=== PATIENT | male | born 1980 | race Caucasian/White ===

== ENCOUNTER 2022-10-02 07:54 | Outpatient (OUT) | payer OTHER, SELFPAY | END 2022-10-02 07:55 | disposition home or self-care (01) | PROVIDERS: Visit Provider Urology | DX: Z01.818 Encounter for other preprocedural examination (principal); N20.1 Calculus of ureter ==

== ENCOUNTER 2022-10-11 11:02 | Day surgery (SDC) | payer OTHER, SELFPAY ==
[2022-10-02 08:27] VITALS: BP 113/80; PULSE 59; RESP 14; TEMP 36.6; O2SAT 99; BMI 28.9
[2022-10-11] VITALS (11 sets, daily range): BP systolic 103–124; BP diastolic 66–87; PULSE 54–98; RESP 11–20; TEMP 36.1; O2SAT 96–98; BMI 28.2
--- NOTE | 2022-10-11 11:15 | XR_ITS ---
The [address] [address] Patient Name: LYSSA WALTER MRN: [id number] date: 1980 Sex: M Assigned Patient Location: [facility] Current Patient Location: [facility] Accession/Order Number: [id number] Exam Date: 10/11/2022 11:10 Report Date: 10/11/2022 12:00 At the request of: HAYDEN JIMÉNEZ Procedure: XR abdomen 1V EXAMINATION: XR abdomen 1V HISTORY: kidney stones COMPARISON: No relevant comparison available. FINDINGS: KIDNEY/URETER - RIGHT: No visible renal or ureteral calcifications. KIDNEY/URETER - LEFT: Left double-J ureteral stent in normal position. 5 mm calcification medial to the stent along the lower margin of genet left L3 transverse process PELVIS: No visible ureteral calcifications. Any visible calcifications favor phleboliths. BOWEL: No abnormal dilation or deviation. BONES: No acute abnormality. OTHER: Negative. No abnormal gaseous collections. XR/XR abdomen 1V IMPRESSION: Left ureteral stent with suspected mid ureterolith Electronically authenticated by: MARILIA GOMEZ Date: 10/11/2022 12:00
[2022-10-11] MEDS: LACTATED RINGER'S SOLUTION 1,000 ML 50 ML IV ×2 (11:40→14:53)
[2022-10-11] MEDS: CIPROFLOXACIN IN 5 % DEXTROSE 400 MG/200 ML PIGGYBACK IV (12:51)
[2022-10-11] MEDS: IOHEXOL 240 MG/ML - 50 ML VIAL INJ (14:16)
--- NOTE | 2022-10-11 14:29 | P.URON_ITS ---
Urology Surgery Operative Note Operative Note Procedure Date: 10/11/22 Time Out Performed: yes Pre-op Diagnosis: 1. Left distal ureteral stones 2. Left kidney stone Post-op Diagnosis: Same Procedures performed: Cystoscopy, left retrograde pyelogram, ureteroscopy laser lithotripsy/stone basket extraction of ureteral and kidney stones, stent exchange Anesthesia: GETA (LMA, Dr. Del Valle) Primary Surgeon: Mariana Herzog Complications: none Estimated blood loss (mL): 0 Findings: Mild bilobar prostatic hypertrophy with elevated bladder neck. Impacted 12 mm left distal/UVJ stones successfully lithotripsied and removed. Area was dilated but did not appear significant/ballooned out. Inflammed mucosa underlying. 7x3 mm irregular shaped left lower pole stone laser lithotripsied and removed. Mild hydronephrosis. Specimens: left ureteral and kidney stones Drains: 6Fr x 22-30 cm JJ left ureteral stent Incision: none Indications for Procedures: 41 year old male recently diagnosed with 12mm of left distal ureteral stone burden and a 7 mm kidney stone s/p ureteral stent placement by Dr. Albrecht on 08/19/22 was evaluated in clinic and elected to proceed with definitive stone surgery of left ureteroscopy, laser lithotripsy/stone extraction, stent exchange. He desires treatment of his kidney stone as well. Risks were discussed including but not limited to bleeding, pain, infection, damage to surrounding structures, inability to treat the stone, and need for additional procedures. The patient understands the stent is not permanent and needs to be removed or exchanged within 3 months to prevent encrustation, infection, invasive procedures and/or permanent renal damage. Detailed description of Procedure: After informed consent was obtained, the patient was brought to the operating room and transferred onto the operating table in supine position. Sequential compression devices were placed on bilateral lower extremities. The patient received the appropriate dose of preoperative IV antibiotics (2g Ancef) and general anesthesia LMA was induced. They were positioned in modified d orsolithotomy with the appropriate pressure points padded, prepped, and draped in the usual sterile fashion for this procedure. An operative safety timeout was performed confirming the patient's identity, laterality and procedure, and all present agreed to proceed. I began by inserting a 22 [place] rigid cystoscope with 30 degree lens into the patient's urethra and bladder without difficulty. There were no bladder tumors, lesions or stones. Bilateral ureteral orifices were orthotopic and patent. I turned my attention to the left ureteral orifice and a flexible grasper was used to bring the indwelling stent to the meatus. A sensor wire was inserted into the stent up to the renal pelvis confirmed on fluoroscopy, and the stent was removed in its entirety without difficulty. Next a semirigid ureteroscope was inserted along the wire to get access to the distal ureteral stone. A 275 ?m holmium laser fiber was used to break the stone into fragments which were then removed with a 2.4 tipless basket. Once the ureter was cleared, the ureteroscope was removed. A 11/13 [place] by 36 cm ureteral access sheath was inserted over the wire in a sequential fashion to gain access to the renal pelvis. Next a flexible ureteroscope was inserted into the sheath and advanced to the renal pelvis. A full renoscopy was performed noting a 7x3mm left lower pole kidney stone. This was lasered and removed with the basket. Any remaining fragments were dusted into 1mm fragments. After the stone was adequately treated, a full renoscopy was performed confirming no significant residual stones or fragments remained. Contrast was injected to assist with mapping for the renoscopy. The wire was reinserted and a pull down ureteroscopy was performed confirming no stones remained in the ureter. The wire was backloaded through the cystoscope and 6Fr x 22-30cm JJ variable length ureteral stent was advanced over the wire, noting adequate curl in the renal pelvis and bladder on fluoroscopic and direct visualization. The bladder was drained and inspected one final time to ensure adequate position of stent and no undue trauma to the bladder was done. The stones sent for pathology and the cystoscope was removed. The patient tolerated the procedure well without complication. The patient was awakened from anesthesia and sent to PACU in stable condition. Plan: Dc home. Follow up within 1 week for in-office cystoscopy and stent removal. Other Provider present: No Post Operative care instructions: See discharge instructions Attending Doc Confirm Attending Attestation: Yes
[2022-10-17 18:20] LABS: Calcium Oxalate Dihydrate 80 % (.); Calcium Oxalate Monohydrate 15 % (.); Calcium phosphate (hydroxyl) 5 % (.); Size 3x3 mm (.)
== END 2022-10-11 15:26 | disposition home or self-care (01) ==
PROVIDERS: Visit Provider Urology
PROC: (CPT 52356; principal; 2022-10-11 12:30)
DX: N13.2 Hydronephrosis with renal and ureteral calculous obstruction (principal); N40.0 Benign prostatic hyperplasia without lower urinary tract symptoms; J45.909 Unspecified asthma, uncomplicated; Z79.899 Other long term (current) drug therapy; Z87.442 Personal history of urinary calculi; F17.210 Nicotine dependence, cigarettes, uncomplicated
CPT/HCPCS: 52356; 74018; 76000; 82365; 99999; C1874; J2704; Q9966